=== PATIENT | male | born 1960 | race African-American/Black ===

== ENCOUNTER 2019-02-24 14:42 | Emergency (ER) | payer OTHER ==
[~2019-02-24] VITALS: Ht 172.7 cm; Wt 104.0 kg
[2019-02-24] MEDS ORDERED: SODIUM CHLORIDE 0.9% 1,000 ML IV ONE (16:06)
[2019-02-24] MEDS ORDERED: ONDANSETRON HCL 4MG/2ML INJ IV ONE ×2 (16:15→17:30)
[2019-02-24] MEDS ORDERED: MECLIZINE 25MG TABLET PO ONE (16:15)
[2019-02-24 16:33] LABS: CHLORIDE 110 mEq/L (98-107)
[2019-02-24 16:34] LABS: BASOPHILS % 1.1 % (0.0-2.0); EOSINOPHILS % 1.4 % (0.0-5.0); HEMATOCRIT. 40.5 % (42.0-52.0); HEMOGLOBIN. 13.7 g/dL (14.0-18.0); LYMPHOCYTES % 24.6 % (20.0-50.0); MEAN CORPUSCULAR HEMOGLOBIN 33.9 pg (28.0-32.0); MEAN CORPUSCULAR VOLUME 99.9 fL (80.0-94.0); MEAN PLATELET VOLUME 9.5 fl (7.4-10.4); MONOCYTES % 10.4 % (2.0-8.0); NEUTROPHILS % 62.5 % (40.0-76.0); PLATELET 203 x1000/uL (130-400); RED BLOOD CELL COUNT 4.05 mill/uL (4.7-6.1); RED CELL DISTRIBUTION WIDTH 13.6 % (11.6-14.6)
[2019-02-24] MEDS ORDERED: ASPIRIN 81MG TABLET PO ONE (17:15)
[2019-02-24 17:30] VITALS: BP 175/99
[2019-02-24] MEDS ORDERED: LORAZEPAM 2MG/ML CPJ IV ONE (17:45)
== END 2019-02-24 19:45 | disposition short-term general hospital (02) ==
LOC: ER 14:42
DX: R42 Dizziness and giddiness (principal); R94.31 Abnormal electrocardiogram [ECG] [EKG]; I25.2 Old myocardial infarction; I48.91 Unspecified atrial fibrillation; Z79.82 Long term (current) use of aspirin
CPT/HCPCS: 36415; 70450; 71045; 80053; 83880; 84484; 85025; 93005; 96361; 96374; 96375; 96376; 99285; J2405; J7030; J8597